=== PATIENT | male | born 1940 | race Caucasian/White ===

== ENCOUNTER 2017-03-08 14:30 | Inpatient (IN) | payer MEDICARE ==
--- NOTE | 2017-03-08 15:02 | ED ---
Chest Pain HPI - General Source: patient, RN notes reviewed Mode of arrival: wheelchair Limitations: no limitations <Ruben Hermosillo - Last Filed: 03/08/17 16:12> <Ino Betancourt - Last Filed: 03/08/17 16:53> - General Chief Complaint: Chest Pain Stated Complaint: chest pain Time Seen by Provider: 03/08/17 14:53 - History of Present Illness Initial Comments: 76-year-old male presents emergency Department chief complaint of chest pain. Patient states his chest pain started around 1:30 PM. Patient states the pain lasted until he arrived to the ER. Patient states pain has subsided. He states it was substernal centralized chest pain. He states he did have some discomfort on the left jawline. 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 Patient also states that he said a bypass. Patient states that most of his care has been at [facility]. 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 Patient states that he has no nausea vomiting at this time he states that he felt slightly short of breath with the pain but that all symptoms have resolved. He denies any headache, dizziness, focal weakness, fever, chills or any cold like symptoms. Patient states that he has history of hypertension, hyperlipidemia controlled on medications. Patient states that he's been told he has borderline diabetic but has a current A1c of upper fives. Patient denies any known drug ALLERGIES. Patient did take 2 full dose aspirin prior arrival (Ruben Hermosillo) - Related Data Home Medications Medication Instructions Recorded Confirmed ALPRAZolam [Xanax] 0.25 mg PO DAILY PRN 03/08/17 03/08/17 Aspirin EC [Ecotrin Low Dose] 81 mg PO DAILY 03/08/17 03/08/17 Atorvastatin [Lipitor] 40 mg PO DAILY 03/08/17 03/08/17 Clopidogrel Bisulfate [Plavix] 75 mg PO DAILY 03/08/17 03/08/17 Ezetimibe [Zetia] 10 mg PO DAILY 03/08/17 03/08/17 Folic Acid 1 mg PO DAILY 03/08/17 03/08/17 Losartan Potassium 100 mg PO DAILY 03/08/17 03/08/17 Multivitamins, Thera [Multivitamin 1 tab PO DAILY 03/08/17 03/08/17 (formulary)] Pioglitazone [Actos] 15 mg PO DAILY 03/08/17 03/08/17 Probenecid [Benemid] 500 mg PO BID 03/08/17 03/08/17 Sildenafil Citrate [Viagra] 50 mg PO ONCE PRN 03/08/17 03/08/17 amLODIPine [Norvasc] 5 mg PO DAILY 03/08/17 03/08/17 metFORMIN HCL [Glucophage] 500 mg PO BID 03/08/17 03/08/17 Allergies Allergy/AdvReac Type Severity Reaction Status Date / Time codeine Allergy Unknown Verified 03/08/17 15:02 SMOKE Allergy Unknown Uncoded 03/08/17 15:02 Review of Systems ROS Other: All systems not noted in ROS Statement are negative. <Ruben Hermosillo - Last Filed: 03/08/17 16:12> ROS Other: All systems not noted in ROS Statement are negative. <Ino Betancourt - Last Filed: 03/08/17 16:53> ROS Statement: Those systems with pertinent positive or pertinent negative responses have been documented in the HPI. EKG Findings - EKG Comments: EKG Findings:: EKG performed at 14:41 normal sinus rhythm with a rate of 72 OR 184 QRS duration 94 QT/QTC 376/411 <Ruben Hermosillo - Last Filed: 03/08/17 16:12> Past Medical History Past Medical History: Hyperlipidemia, Hypertension, Myocardial Infarction ([place]) History of Any Multi-Drug Resistant Organisms: None Reported Past Surgical History: Coronary Bypass/CABG, Heart Catheterization Past Psychological History: No Psychological Hx Reported Smoking Status: Never smoker Past Alcohol Use History: Daily Past Drug Use History: None Reported <Ruben Hermosillo - Last Filed: 03/08/17 16:12> General Exam Limitations: no limitations General appearance: alert, in no apparent distress Head exam: Present: atraumatic, normocephalic, normal inspection Eye exam: Present: normal appearance, PERRL, EOMI. Absent: scleral icterus, conjunctival injection, periorbital swelling ENT exam: Present: mucous membranes moist Neck exam: Present: normal inspection, full ROM. Absent: tenderness, meningismus, lymphadenopathy Respiratory exam: Present: normal lung sounds bilaterally. Absent: respiratory distress, wheezes, rales, rhonchi, stridor, chest wall tenderness Cardiovascular Exam: Present: regular rate, normal rhythm, normal heart sounds. Absent: systolic murmur, diastolic murmur, rubs, gallop, clicks GI/Abdominal exam: Present: soft, normal bowel sounds. Absent: distended, tenderness, guarding, rebound, rigid Neurological exam: Present: alert, oriented X3 Skin exam: Present: warm, dry, intact, normal color. Absent: rash <Ruben Hermosillo - Last Filed: 03/08/17 16:12> Course <Ruben Hermosillo - Last Filed: 03/08/17 16:12> <Ino Betancourt - Last Filed: 03/08/17 16:53> Vital Signs 03/08/17 03/08/17 03/08/17 14:34 15:03 15:47 Temperature 97.6 F Pulse Rate 89 68 Respiratory 18 18 18 Rate Blood Pressure 155/72 147/64 O2 Sat by Pulse 99 98 Oximetry - Reevaluation(s) Reevaluation #1: 03/08/17 16:53 I did personally do a [id number] evaluation the patient did discuss the findings with him and a gas that was with him. He currently is pain-free EKG does show normal sinus rhythm. I did discuss case also with Dr. Hawk who did come to see the patient. Patient will be admitted for a cardiac evaluation. I do agree with the assessment and plan. (Ino Betancourt) Chest Pain MDM <Ruben Hermosillo - Last Filed: 03/08/17 16:12> <Ino Betancourt - Last Filed: 03/08/17 16:53> - [facility] [place] 76-year-old male presented emergency with chest pain. Patient's workup is benign at this time that he has extensive cardiac history. Patient did take aspirin prior arrival. Patient be placed on heparin, repeat cardiac enzymes with cardiology evaluation. (Ruben Hermosillo) Disposition <Ruben Hermosillo - Last Filed: 03/08/17 16:12> <Ino Betancourt - Last Filed: 03/08/17 16:53> Clinical Impression: Unstable angina Disposition: ADMITTED IP TO THIS [facility] Condition: Fair Referrals: Nonstaff,Physician [Primary Care Provider] - 1-2 days
[2017-03-08 15:36] LABS: Basophils % (A) 0 %; CHCM 33.4; Eosinophils # (A) 0.2 k/uL (0-0.7); Eosinophils % (A) 2 %; HCT 39.3 % (39.0-53.0); HDW 2.16; HGB 13.9 gm/dL (13.0-17.5); Luc # (Auto) 0.18; Luc % (Auto) 2; Lymphocytes # (A) 1.6 k/uL (1.0-4.8); Lymphocytes % (A) 21 %; MCH 33.9 pg (25.0-35.0); MCHC 35.3 g/dL (31.0-37.0); MCV 96.1 fL (80.0-100.0); Mean Platelet Volume 7.1; Monocytes # (A) 0.5 k/uL (0-1.0); Monocytes % (A) 7 %; Neutrophils # (A) 5.1 k/uL (1.3-7.7); Neutrophils % (A) 68 %; RBC 4.09 m/uL (4.30-5.90); RDW 13.4 % (11.5-15.5); WBC 7.6 k/uL (3.8-10.6); WBC (Perox) 7.61
--- NOTE | 2017-03-08 15:41 | XR ---
EXAMINATION TYPE: XR chest 2V DATE OF EXAM: 03/08/2017 COMPARISON: None HISTORY: 76-year-old male with chest pain TECHNIQUE: PA and lateral views FINDINGS: Median sternotomy wires with post-CABG clips in the mediastinum. Heart is normal size. Atheroscleroti c arch calcifications. Pulmonary vasculature within normal limits. Mild interstitial prominence has a chronic appearance. No consolidation or pleural effusion. IMPRESSION: Chronic-appearing changes. No acute process seen.
[2017-03-08 15:48] LABS: Calcium 9.5 mg/dL (8.4-10.2); Magnesium 1.8 mg/dL (1.6-2.3); Total Bilirubin 0.4 mg/dL (0.2-1.3); Total Protein 6.5 g/dL (6.3-8.2)
[2017-03-08 15:49] LABS: Partial Thromboplastin Time 23.9 sec (22.0-30.0); Prothrombin Time 10.6 sec (9.0-12.0)
[2017-03-08 15:50] LABS: Creatine Kinase 125 U/L (55-170)
[2017-03-08 16:03] LABS: Troponin I <0.012 ng/mL (0.000-0.034)
[2017-03-08] MEDS ORDERED: NITROGLYCERIN SL TABS 0.4 MG TAB SUBLINGUAL PRN (16:13)
[2017-03-08] MEDS ORDERED: HEPARIN SODIUM,PORCINE 5,000 UNIT/ML 1 ML VIAL IV ONE (16:13)
[2017-03-08] MEDS: HEPARIN SODIUM,PORCINE/D5W PMX 25,000 UNIT in DEXTROSE/WATER 1 500ML.BAG IV SCH (17:15)
--- NOTE | 2017-03-08 17:43 | P.HPIM ---
History of Present Illness 76-year-old male presents emergency Department chief complaint of chest pain. Patient states his chest pain started around 1:30 PM. Patient states the pain lasted until he arrived to the ER. Patient states pain has subsided. He states it was substernal centralized chest pain. He states he did have some discomfort on the left jawline. Patient had 2 prior MIs in the past and bypass. Patient states that most of his care has been at [facility]. 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 Patient states that he has no nausea vomiting at this time he states that he felt slightly short of breath with the pain but that all symptoms have resolved. He denies any headache, dizziness, focal weakness, fever, chills or any cold like symptoms. Patient states that he has history of hypertension, hyperlipidemia controlled on medications. Patient states that he's been told he has borderline diabetic but has a current A1c of upper fives. Patient denies any known drug ALLERGIES. Patient did take 2 full dose aspirin prior arrival. Chest pain is about 7-8 x 10 in severity and lasted for about one and half hour in the substernal area. Radiate into the upper vagina, nonpleuritic not associated with cough, denied any fevers not associated with food. Denied any diaphoresis. Review of Systems REVIEW OF SYSTEMS: CONSTITUTIONAL: No fever, no malaise, no fatigue. HEENT: No recent visual problems or hearing problems. Denied any sore throat. CARDIOVASCULAR: No orthopnea, PND, no palpitations, no syncope. PULMONARY: No shortness of breath, no cough, no hemoptysis. GASTROINTESTINAL: No diarrhea, no nausea, no vomiting, no abdominal pain. Normoactive bowel sounds. NEUROLOGICAL: No headaches, no weakness, no numbness. HEMATOLOGICAL: Denies any bleeding or petechiae. GENITOURINARY: Denies any burning micturition, frequency, or urgency. MUSCULOSKELETAL/RHEUMATOLOGICAL: Denies any joint pain, swelling, or any muscle pain. ENDOCRINE: Denies any polyuria or polydipsia. The rest of the 14-point review of systems is negative. Past Medical History Past Medical History: Hyperlipidemia, Hypertension, Myocardial Infarction ([place]) History of Any Multi-Drug Resistant Organisms: None Reported Past Surgical History: Coronary Bypass/CABG, Heart Catheterization Past Psychological History: No Psychological Hx Reported Smoking Status: Never smoker Past Alcohol Use History: Daily Past Drug Use History: None Reported Medications and Allergies Home Medications Medication Instructions Recorded Confirmed Type ALPRAZolam [Xanax] 0.25 mg PO DAILY PRN 03/08/17 03/08/17 History Aspirin EC [Ecotrin Low Dose] 81 mg PO DAILY 03/08/17 03/08/17 History Atorvastatin [Lipitor] 40 mg PO DAILY 03/08/17 03/08/17 History Clopidogrel Bisulfate [Plavix] 75 mg PO DAILY 03/08/17 03/08/17 History Ezetimibe [Zetia] 10 mg PO DAILY 03/08/17 03/08/17 History Folic Acid 1 mg PO DAILY 03/08/17 03/08/17 History Losartan Potassium 100 mg PO DAILY 03/08/17 03/08/17 History Multivitamins, Thera [Multivitamin 1 tab PO DAILY 03/08/17 03/08/17 History (formulary)] Pioglitazone [Actos] 15 mg PO DAILY 03/08/17 03/08/17 History Probenecid [Benemid] 500 mg PO BID 03/08/17 03/08/17 History Sildenafil Citrate [Viagra] 50 mg PO ONCE PRN 03/08/17 03/08/17 History amLODIPine [Norvasc] 5 mg PO DAILY 03/08/17 03/08/17 History metFORMIN HCL [Glucophage] 500 mg PO BID 03/08/17 03/08/17 History Allergies Allergy/AdvReac Type Severity Reaction Status Date / Time codeine Allergy Unknown Verified 03/08/17 15:02 SMOKE Allergy Unknown Uncoded 03/08/17 15:02 Physical Exam Vitals: Vital Signs Temp Pulse Resp BP Pulse Ox 03/08/17 17:18 98.7 F 66 15 185/87 98 03/08/17 15:47 68 18 147/64 98 03/08/17 15:03 18 03/08/17 14:34 97.6 F 89 18 155/72 99 Intake and Output 03/08/17 03/08/17 03/08/17 06:59 14:59 22:59 Other: Weight 92.986 kg Patient Weight 03/09/17 06:59 Weight 92.986 kg PHYSICAL EXAMINATION: GENERAL: The patient is alert and oriented x3, not in any acute distress. Well developed, well nourished. HEENT: Pupils are round and equally reacting to light. EOMI. No scleral icterus. No conjunctival pallor. Normocephalic, atraumatic. No pharyngeal erythema. No thyromegaly. CARDIOVASCULAR: S1 and S2 present. No murmurs, rubs, or gallops. PULMONARY: Chest is clear to auscultation, no wheezing or crackles. ABDOMEN: Soft, nontender, nondistended, normoactive bowel sounds. No palpable organomegaly. MUSCULOSKELETAL: No joint swelling or deformity. EXTREMITIES: No cyanosis, clubbing, or pedal edema. NEUROLOGICAL: Gross neurological examination did not reveal any focal deficits. SKIN: No rashes. Results CBC & Chem 7: 03/08/17 14:55 03/08/17 14:55 Labs: Abnormal Lab Results - Last 24 Hours (Table) 03/08/17 03/08/17 Range/Units 14:55 14:55 RBC 4.09 L (4.30-5.90) m/uL BUN 27 H (9-20) mg/dL Creatinine 1.77 H (0.66-1.25) mg/dL Assessment and Plan Plan: #1 chest pain: Patient is admitted for rule out acute microinfarction will obtain 2 more sets of troponins EKG, patient's symptomology is consistent with unstable angina patient was started on IV heparin. Cardiology will a valid the patient will decide on stress test for cardiac catheterization. 2 possible chronic kidney disease I do not have any previous creatinines available. Patient probably has diabetic nephropathy patient's EKG is probably stage III. #3 coronary artery disease with previous microinfarctions. 4 hyperlipidemia 5 hypertension 6 type 2 diabetes mellitus: Hold off on metformin patient will be started on sliding scale insulin and Actos will be continued.
[2017-03-08 17:45] LABS: Glucose,Whole Blood 117 mg/dL (75-99)
[2017-03-08] MEDS ORDERED: ALPRAZolam 0.25 MG TAB PO PRN (18:39)
[2017-03-08 20:02] LABS: Glucose,Whole Blood 125 mg/dL (75-99)
[2017-03-08] MEDS: EZETIMIBE 10 MG TAB PO SCH (20:52)
[2017-03-08] MEDS: INSULIN LISPRO (humaLOG) 300 UNIT/3 ML VIAL SQ SCH (20:52)
[2017-03-08] MEDS: PROBENECID 500 MG TAB PO SCH (20:52)
[2017-03-08] MEDS: ATORVASTATIN 40 MG TAB PO SCH (20:52)
[2017-03-08] MEDS ORDERED: LOSARTAN 50 MG TAB PO SCH (21:00)
[2017-03-08 21:39] LABS: Creatine Kinase 116 U/L (55-170)
[2017-03-08 21:52] LABS: Troponin I <0.012 ng/mL (0.000-0.034)
[2017-03-08 22:03] LABS: Hemoglobin A1C 6.1 % (4.2-6.1)
[2017-03-09 02:46] LABS: Creatine Kinase 124 U/L (55-170)
[2017-03-09 02:58] LABS: Troponin I <0.012 ng/mL (0.000-0.034)
[2017-03-09 04:06] LABS: Cholesterol 131 mg/dL (<200); HDL Cholesterol 50 mg/dL (40-60); Triglycerides 102 mg/dL (<150)
[2017-03-09 07:02] LABS: Glucose,Whole Blood 106 mg/dL (75-99)
[2017-03-09] MEDS ORDERED: ASPIRIN 81 MG CHEW PO SCH ×2 (09:00→21:00)
[2017-03-09] MEDS ORDERED: ASPIRIN 325 MG TAB PO SCH (09:00)
[2017-03-09] MEDS ORDERED: EZETIMIBE 10 MG TAB PO SCH (09:00)
[2017-03-09] MEDS ORDERED: ATORVASTATIN 40 MG TAB PO SCH (09:00)
[2017-03-09] MEDS ORDERED: LOSARTAN 50 MG TAB PO SCH (09:00)
[2017-03-09] MEDS: INSULIN LISPRO (humaLOG) 300 UNIT/3 ML VIAL SQ SCH ×4 (10:32→20:58)
[2017-03-09] MEDS: LOSARTAN 50 MG TAB PO SCH (10:34)
[2017-03-09] MEDS: PIOGLITAZONE 15 MG TAB PO SCH (10:34)
[2017-03-09] MEDS: SODIUM CHLORIDE 0.9% 1,000 ML IV SCH ×2 (10:35→20:59)
[2017-03-09] MEDS: PROBENECID 500 MG TAB PO SCH ×2 (10:35→20:58)
[2017-03-09] MEDS: CLOPIDOGREL 75 MG TAB PO SCH ×2 (10:35→13:55)
[2017-03-09] MEDS: amLODIPine 5 MG TAB PO SCH (10:36)
--- NOTE | 2017-03-09 11:27 | CONS ---
This is a 76 year old gentleman who lives in [facility] and has most of his healthcare in the [facility] area and sees a beck tender by the name of Dr. Sands in [facility]. He was here visiting a friend about an hour north from here and he was reading a book and was thinking about having lunch and then he started experiencing what he described as a feeling of heaviness and pressure in the mid sternal area and then there was and the pain seemed to be very mild. He took two aspirins. He did not have relief. The pain worsened and his friend drove him here. As he was driving, he had pain but after he arrived, the pain was completely gone. His two sets of troponins are normal. He is resting comfortably without symptoms. He has history of Type 2 diabetes mellitus for which he was on Metformin and seems to have chronic kidney disease although he is not aware of it. Creatinine is 1.7. He is resting comfortably at the time of my evaluation without any symptoms of chest pain. He has history of prior aortocoronary bypass surgery 14 years ago and he had four bypasses, details are unavailable. Past medical history: 1. CAD with previous history of aortocoronary bypass surgery. 2. Type 2 diabetes mellitus. 3. Hypertension. 4. Hypercholesterolemia. 5. The patient has elevated creatinine but is not aware of any chronic kidney disease. Medications at home include: 1. Amlodipine 5 mg daily. 2. Metformin 500 mg b.i.d. 3. Losartan 100 mg daily. 4. Zetia 10 mg daily. 5. Plavix 75 mg daily. 6. Aspirin 81 mg daily. 7. Atorvastatin 40 mg. 8. Xanax. ALLERGIES: CODEINE. Social history: The patient is not a smoker. Does not consume alcohol in a regular basis. On examination, blood pressure is 140/70. Pulse rate is 70 per minute, regular. HEENT unremarkable. Fundus was not examined by me. Neck is supple. No JVD. I do not hear a carotid bruit. No thyromegaly. Heart exam reveals S1 , S2 heard normally without rub, murmur or gallop. Lungs are clear. Abdomen soft and nontender. Lower extremities reveal normal pulses. No edema. Central nervous system is normal. EKG revealed sinus mechanism. Incomplete right bundle branch block pattern. No acute changes. Laboratory data reveals unremarkable troponins. IMPRESSION: 1. Chest pain syndrome, probably angina. 2. History of coronary artery disease, previous bypass surgery in 2002. 3. Type 2 diabetes with chronic kidney disease. 4. Hypertension. 5. Hypercholesterolemia. RECOMMENDATIONS: I am recommending that we hydrate the patient. Repeat a BMP tomorrow. Perform a stress Cardiolite scan or Lexiscan stress test on Saturday. However, the patient wishes to go home and have testing performed through his beck tender in the [facility] area. I suggested to him that we will keep him overnight, perform additional troponin levels and if he has no further symptoms , we will consider discharge with the understanding that he will see his beck tender promptly and have a stress test performed. His last stress test was more than a year ago. I also talked to him about elevated creatinine. We will therefore hydrate him and repeat renal function tomorrow. Discussed my thoughts in detail with the patient. Thank you very much for the consult. ARIADNA
[2017-03-09 12:11] LABS: Glucose,Whole Blood 146 mg/dL (75-99)
[2017-03-09] MEDS: FOLIC ACID 1 MG TAB PO SCH (13:58)
[2017-03-09] MEDS: MULTIVITAMINS, THERA 1 EACH TAB PO SCH (13:58)
--- NOTE | 2017-03-09 14:19 | P.PN ---
Subjective Patient is chest pain-free. Patient was referred to cardiology patient repeated sets of troponins are negative and EKG is nonsignificant. Objective - Vital Signs Vital signs: Vital Signs Temp 97.6 F 03/09/17 12:00 Pulse 68 03/09/17 12:00 Resp 18 03/09/17 12:00 BP 173/90 03/09/17 12:00 Pulse Ox 97 03/09/17 12:00 Intake & Output 03/08/17 03/09/17 03/09/17 18:59 06:59 18:59 Intake Total 660 240 Balance 660 240 Weight 92.986 kg Intake: IV 80 0.9 NS @ KVO 80 Intake, IV Titration 80 Amount Heparin Sodium,Porcine/ 80 D5w Pmx 25,000 unit In Dextrose/Water 1 500ml. bag @ 10.755 UNITS/KG/HR 20 mls/hr IV .Q24H MARISSA Rx #:[id number] Oral 500 240 Other: Voiding Method Toilet Toilet # Voids 2 - Exam PHYSICAL EXAMINATION: GENERAL: The patient is alert and oriented x3, not in any acute distress. Well developed, well nourished. HEENT: Pupils are round and equally reacting to light. EOMI. No scleral icterus. No conjunctival pallor. Normocephalic, atraumatic. No pharyngeal erythema. No thyromegaly. CARDIOVASCULAR: S1 and S2 present. No murmurs, rubs, or gallops. PULMONARY: Chest is clear to auscultation, no wheezing or crackles. ABDOMEN: Soft, nontender, nondistended, normoactive bowel sounds. No palpable organomegaly. MUSCULOSKELETAL: No joint swelling or deformity. EXTREMITIES: No cyanosis, clubbing, or pedal edema. NEUROLOGICAL: Gross neurological examination did not reveal any focal deficits. SKIN: No rashes. - Labs CBC & Chem 7: 03/08/17 14:55 03/08/17 14:55 Labs: Abnormal Lab Results - Last 24 Hours (Table) 03/08/17 03/08/17 03/08/17 Range/Units 14:55 14:55 17:43 RBC 4.09 L (4.30-5.90) m/uL APTT (22.0-30.0) sec BUN 27 H (9-20) mg/dL Creatinine 1.77 H (0.66-1.25) mg/dL POC Glucose (mg/dL) 117 H (75-99) mg/dL 03/08/17 03/09/17 03/09/17 Range/Units 20:01 01:53 07:00 RBC (4.30-5.90) m/uL APTT 49.3 H (22.0-30.0) sec BUN (9-20) mg/dL Creatinine (0.66-1.25) mg/dL POC Glucose (mg/dL) 125 H 106 H (75-99) mg/dL 03/09/17 Range/Units 12:09 RBC (4.30-5.90) m/uL APTT (22.0-30.0) sec BUN (9-20) mg/dL Creatinine (0.66-1.25) mg/dL POC Glucose (mg/dL) 146 H (75-99) mg/dL Assessment and Plan Plan: #1 chest pain: Rule out acute coronary syndromes, audiology is recommending monitoring one more day and the awaiting echocardiogram looking for any wall motion abnormalities. 2 possible chronic kidney disease I do not have any previous creatinines available. Patient probably has diabetic nephropathy patient's EKG is probably stage III. Started on IV fluids we'll continue to hold metformin. The patient' s creatinine doesn't come down, patient's metformin need to be discontinued. Upon discharge #3 coronary artery disease with previous myocardial infarction. 4 hyperlipidemia 5 hypertension 6 type 2 diabetes mellitus: Hold off on metformin patient will be started on sliding scale insulin and Actos will be continued.
[2017-03-09] MEDS: HEPARIN SODIUM,PORCINE/D5W PMX 25,000 UNIT in DEXTROSE/WATER 1 500ML.BAG IV SCH (16:54)
[2017-03-09 16:57] LABS: Glucose,Whole Blood 130 mg/dL (75-99)
[2017-03-09 20:22] LABS: Glucose,Whole Blood 100 mg/dL (75-99)
[2017-03-09] MEDS: EZETIMIBE 10 MG TAB PO SCH (20:58)
[2017-03-09] MEDS: ATORVASTATIN 40 MG TAB PO SCH (20:58)
[2017-03-10 06:50] LABS: Glucose,Whole Blood 98 mg/dL (75-99)
[2017-03-10] MEDS: INSULIN LISPRO (humaLOG) 300 UNIT/3 ML VIAL SQ SCH ×2 (07:33→12:07)
[2017-03-10 08:13] LABS: Calcium 9.4 mg/dL (8.4-10.2); Potassium 4.3 mmol/L (3.5-5.1)
[2017-03-10] MEDS: PIOGLITAZONE 15 MG TAB PO SCH (09:24)
[2017-03-10] MEDS: LOSARTAN 50 MG TAB PO SCH (09:24)
[2017-03-10] MEDS: amLODIPine 5 MG TAB PO SCH (09:24)
[2017-03-10] MEDS: PROBENECID 500 MG TAB PO SCH (09:24)
--- NOTE | 2017-03-10 11:34 | PN ---
This is a gentleman who came in yesterday with episode of chest pain. He has history of CAD. However, the quality of pain was somewhat atypical but given his history I performed additional troponins. These were normal. He also had elevated creatinine of about 1.77. I explained to him that he has chronic kidney disease. I also explained to him that with the diabetes this is a concern but we will hydrate him and repeat the electrolytes today. This morning his creatinine is 1.44, still suggestive of chronic kidney disease, probably stage 2. I am recommending that he should follow up with his primary care physician and probably nephrology as well. he has no further chest pain. He is comfortably resting without symptoms. His vital signs are stable. Blood pressure is 140/80, pulse rate is 70 per minute, regular. HEENT: Unremarkable. Fundus was not examined by me. NECK: Supple. No JVD. I do not hear a carotid bruit. HEART: Reveals S1/S2. LUNGS: Clear. Rest of physical exam unchanged. Patient can be discharged today and follow up with his primary care physician. He wishes to have stress testing performed with his PCP. I will also review his echocardiogram. I explained to the patient that his kidney function has improved and the creatinine is now 1.44 with the normal being 1.25. TOBIASD
[2017-03-10 11:40] VITALS: BP 162/80; PULSE 55; RESP 17; TEMP 97.7
[2017-03-10 12:02] LABS: Glucose,Whole Blood 90 mg/dL (75-99)
[2017-03-10] MEDS: FOLIC ACID 1 MG TAB PO SCH (12:07)
[2017-03-10] MEDS: MULTIVITAMINS, THERA 1 EACH TAB PO SCH (12:07)
--- NOTE | 2017-03-10 12:11 | ECHOF ---
Referral Reason:Unstable Angina MEASUREMENTS -------- HEIGHT: 157.5 cm WEIGHT: 93.0 kg BP: 130/60 IVSd: 1.3 cm (0.6 - 1.1) LVIDd: 3.7 cm (3.9 - 5.3) LVPWd: 1.2 cm (0.6 - 1.1) IVSs: 1.6 cm LVIDs: 2.4 cm LVPWs: 1.4 cm LAESV Index (A-L): 25.98 ml/m Ao Diam: 4.1 cm (2.0 - 3.7) AV Cusp: 2.0 cm (1.5 - 2.6) LA Diam: 2.9 cm (2.7 - 3.8) MV EXCURSION: 12.907 mm (> 18.000) MV EF SLOPE: 46 mm/s (70 - 150) EPSS: 1.3 cm MV E Vitaliy: 0.69 m/s MV DecT: 330 ms MV A Vitaliy: 1.27 m/s MV E/A Ratio: 0.54 RAP: 5.00 mmHg RVSP: 11.47 mmHg FINDINGS -------- Sinus rhythm. This was a techncally difficult study with suboptimal views, , Definity utilized for enhancement of images. There is mild concentric left ventricular hypertrophy. Overall left ventricular systolic function is low-normal with, an EF between 50 - 55 %. Septal wall motion is delayed and consistent with prior cardiac surgery. Basal septal hypokinesis The right ventricle is normal in size. Normal LA size by volume 22+/-6 ml/m2. The right atrial size is normal. 1.5MG OF DEFINITY UTLIZED: 2 OR MORE WALL SEGMENTS NOT VISUALIZED. There is mild aortic valve sclerosis. Mild mitral regurgitation is present. Mild tricuspid regurgitation present. There is no evidence of pulmonary hypertension. The right ventricular systolic pressure, as measured by Doppler, is 11.47mmHg. There is no pulmonic regurgitation present. Aortic Root is mildly dilated. CONCLUSIONS -------- 1. This was a techncally difficult study with suboptimal views, , Definity utilized for enhancement of images. 2. There is no pulmonic regurgitation present. 3. Aortic Root is mildly dilated. 4. There is mild concentric left ventricular hypertrophy. 5. Overall left ventricular systolic function is low-normal with, an EF between 50 - 55 %. 6. Basal septal hypokinesis 7. 1.5MG OF DEFINITY UTLIZED: 2 OR MORE WALL SEGMENTS NOT VISUALIZED. 8. There is mild aortic valve sclerosis. 9. Mild mitral regurgitation is present. 10. Mild tricuspid regurgitation present. 11. The right ventricular systolic pressure, as measured by Doppler, is 11.47mmHg. ALUMINUM WELDER: Mita Arias RDCS
--- NOTE | 2017-03-10 16:07 | P.DS ---
Providers Date of admission: 03/10/17 07:54 Patient came encumbrance of chest pain etiology of chest pain is unclear patient was ruled out acute coronary syndromes was evaluated with cardiology and patient was asked to follow-up with his cardiology as an outpatient. Patient had an echocardiogram which showed some anterior wall motion abnormalities which appears to be present from his previous myocardial infarction. In spite of IV hydration patient creatinine came down only to 1.44 because of his metformin is being discontinued and patient was started on Januvia #1 chest pain: Ruled out acute coronary syndromes, 2 possible chronic kidney disease stage II to 3 #3 coronary artery disease with previous myocardial infarction. 4 hyperlipidemia 5 hypertension 6 type 2 diabetes mellitus: Attending physician: Walt Hawk Consults: 03/08/17 16:14 Consult Physician Urgent Consulting Provider: [facility] Consult Reason/Comments: chest pain Do you want consulting provider notified?: Yes Primary care physician: Physician Nonstaff Patient Condition at Discharge: Fair Plan - Discharge Summary New Discharge Prescriptions: Discontinued metFORMIN HCL [Glucophage] 500 mg PO BID No Action amLODIPine [Norvasc] 5 mg PO DAILY Losartan Potassium 100 mg PO DAILY Ezetimibe [Zetia] 10 mg PO DAILY ALPRAZolam [Xanax] 0.25 mg PO DAILY PRN PRN Reason: Anxiety Pioglitazone [Actos] 15 mg PO DAILY Atorvastatin [Lipitor] 40 mg PO HS Aspirin EC [Ecotrin Low Dose] 81 mg PO DAILY Probenecid [Benemid] 500 mg PO BID Multivitamins, Thera [Multivitamin (formulary)] 1 tab PO DAILY Folic Acid 1 mg PO DAILY Clopidogrel Bisulfate [Plavix] 75 mg PO DAILY sitaGLIPtin [Januvia] 50 mg PO DAILY Discharge Medication List ALPRAZolam [Xanax] 0.25 mg PO DAILY PRN 03/08/17 [History] Aspirin EC [Ecotrin Low Dose] 81 mg PO DAILY 03/08/17 [History] Atorvastatin [Lipitor] 40 mg PO HS 03/08/17 [History] Clopidogrel Bisulfate [Plavix] 75 mg PO DAILY 03/08/17 [History] Ezetimibe [Zetia] 10 mg PO DAILY 03/08/17 [History] Folic Acid 1 mg PO DAILY 03/08/17 [History] Losartan Potassium 100 mg PO DAILY 03/08/17 [History] Multivitamins, Thera [Multivitamin (formulary)] 1 tab PO DAILY 03/08/17 [History ] Pioglitazone [Actos] 15 mg PO DAILY 03/08/17 [History] Probenecid [Benemid] 500 mg PO BID 03/08/17 [History] amLODIPine [Norvasc] 5 mg PO DAILY 03/08/17 [History] sitaGLIPtin [Januvia] 50 mg PO DAILY 03/10/17 [History] Follow up Appointment(s)/Referral(s): Nonstaff,Physician [Primary Care Provider] - 1-2 days Patient Instructions/Handouts: Angina (DC) Activity/Diet/Wound Care/Special Instructions: Discontinue Metformin and start new prescription 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 Discharge Disposition: HOME SELF-CARE
[2017-03-11] MEDS ORDERED: CLOPIDOGREL 75 MG TAB PO SCH (09:00)
== END 2017-03-10 13:43 | disposition home or self-care (01) | DRG 313 ==
LOC: EC 14:30 → 3OBS 16:54 → OBSVTOIN 03-10 07:54
PROVIDERS: ADMIT Internal Medicine; ATTEND Internal Medicine
DX: R07.9 Chest pain, unspecified (principal); I25.2 Old myocardial infarction; E11.21 Type 2 diabetes mellitus with diabetic nephropathy; N18.3 Chronic kidney disease, stage 3 (moderate); I12.9 Hypertensive chronic kidney disease with stage 1 through stage 4 chronic kidney disease, or unspecified chronic kidney disease; I25.10 Atherosclerotic heart disease of native coronary artery without angina pectoris; E78.5 Hyperlipidemia, unspecified; E11.22 Type 2 diabetes mellitus with diabetic chronic kidney disease; E78.00 Pure hypercholesterolemia, unspecified; I45.10 Unspecified right bundle-branch block; Z95.1 Presence of aortocoronary bypass graft; Z79.82 Long term (current) use of aspirin; Z79.02 Long term (current) use of antithrombotics/antiplatelets; Z79.84 Long term (current) use of oral hypoglycemic drugs; Z79.899 Other long term (current) drug therapy
CPT/HCPCS: 36415; 71020; 80048; 80053; 80061; 82550; 82553; 83036; 83690; 83735; 84484; 85025; 85610; 85730; 93005; 93306; 94760; 96374; 99285